=== PATIENT | female | born 1980 | race African-American/Black ===

== ENCOUNTER 2016-06-04 02:38 | Emergency (ER) | payer MEDICAID ==
[~2016-06-04] VITALS: Ht 170.2 cm; Wt 145.0 kg
[~2016-06-04 02:38] MED LIST: ATOR20TA PO; IBUP800T23 PO; ORPH100T PO; TRAM50 PO; Z.0.BCPILL PO
[2016-06-04 02:41] VITALS: BP 152/86; PULSE 94; RESP 16; O2SAT 100
[2016-06-04] MEDS ORDERED: ATOR20TA15 PO (02:53)
[2016-06-04] MEDS ORDERED: BIRTH CONTROL PILLS (02:53)
[2016-06-04] MEDS ORDERED: AMOX500T PO (03:37)
[2016-06-04] MEDS ORDERED: DICL50TA3 PO (03:37)
--- NOTE | 2016-06-04 03:41 | PD ---
HPI Chief Complaint: Oral / Dental Pain or Problem Time Seen by Provider: 03:37 Travel History International Travel<30 days: No Contact w/Intl Traveler<30days: No Traveled to known affect area: No History of Present Illness HPI 35-year-old black female presents emergency Department with complaints of right sided dental pain. She states that she been having pain now for approximately one week but has gotten worse in the last 2 days. She states the pain is moderate but can be severe with cold weather. She denies any fever or chills. No sore throat, cough, congestion. No nausea vomiting. She states cold makes it worse and nothing seems to make it better. 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) Tetanus Vaccination: < 5 Years ?: Not LMP: 3 WKS AGO : 4 Para: 2 Miscarriage: 2 Dilation and Curettage (D&C): Yes Tubal Ligation: Yes Past Surgical History Narrative Surgical Cholecystectomy, Section: Yes Cholecystectomy: Yes Gynecologic Surgery: Yes ([facility]) Social History Alcohol Use: Yes (SOCIALLY) Tobacco Use: No Substance Use: No Allergies-Medications (Allergen,Severity, Reaction): Coded Allergies: No Known Allergies (Verified , 06/04/16) Reported Meds & Prescriptions Reported Meds & Active Scripts Active Reported [ Control Pills] Atorvastatin (Atorvastatin Calcium) 20 Mg Tab 20 Mg PO HS Review of Systems Except as stated in HPI: all other systems reviewed are Neg Physical Exam Narrative GENERAL: Well-developed, well-nourished in no acute distress. Nontoxic appearing. HEAD: Normocephalic, atraumatic. EYES: Pupils equal round and reactive. Extraocular motions intact. No scleral icterus. No injection or drainage. ENT: TMs clear without erythema. The external auditory canals clear. Nose: clear . Posterior pharynx is pink and moist. No tonsillar edema or exudate. Uvula midline. Airway patent. Patient has periodontal disease. She has multiple dental caries. She points to her right upper maxilla lower mandible as a source of her pain. She has a large dental caries in her right lower mandible. No facial swelling. NECK: Trachea midline.Supple, nontender, moves head freely. No central bony tenderness or spasm. CARDIOVASCULAR: Regular rate and rhythm without murmurs, gallops, or rubs. RESPIRATORY: Clear to auscultation. Breath sounds equal bilaterally. No wheezes , rales, or rhonchi. GASTROINTESTINAL: Abdomen soft, non-tender, nondistended. No hepato-splenomegaly , or palpable masses. No guarding. EXTREMITIES: No clubbing, cyanosis, or edema. No joint tenderness, effusion, or edema noted. BACK: Nontender without deformity or crepitance. No flank tenderness. Data Data Last Documented VS Vital Signs Date Time Temp Pulse Resp B/P Pulse Ox O2 Delivery O2 Flow Rate FiO2 06/04/16 02:41 94 16 152/86 100 Room Air Orders Acetamin-Hydrocod 325-5 Mg ([place] 5-325 (06/04/16 03:45) Amoxicillin (Trimox) (06/04/16 03:45) MDM Medical Decision Making Medical Screen Exam Complete: Yes Emergency Medical Condition: Yes Medical Record Reviewed: Yes Differential Diagnosis MDM: Moderate Differential diagnoses: Dental abscess, dental caries, osteitis, cellulitis Narrative Course Patient's given amoxicillin 500 mg and Lortab 5 a grams by mouth. This is dental caries, dentalgia Diagnosis Primary Impression: Dental caries Additional Impression: Dentalgia Patient Instructions: General Instructions Additional Instructions: Rest. [place] gargles. [place] oil on cotton balls. Amoxicillin and diclofenac follow-up with a dentist as soon as possible. And return to the ER if any problems. Med/Other Pt SpecificInfo: Prescription(s) given Scripts Diclofenac Sodium DR 50 Mg Tabdr50 Mg PO TID #21 TAB Prov:Sepideh Pastrana MD 06/04/16 Amoxicillin 500 Mg Tab1,000 Mg PO BID #40 TAB Prov:Sepideh Pastrana MD 06/04/16 Disposition: 01 DISCHARGE HOME Condition: Stable Rayshawn Weiner Jun 04, 2016 03:41
[2016-06-04] MEDS ORDERED: AMOXICILLIN (TRIHYDRATE) 500 MG CAP PO ONE (03:45)
[2016-06-04] MEDS ORDERED: ACETAMINOPHEN/HYDROcodone 325 MG/5 MG TAB PO ONE (03:45)
== END 2016-06-04 04:16 | disposition home or self-care (01) ==
LOC: NEPB 02:38
DX: K02.9 Dental caries, unspecified (principal)
CPT/HCPCS: 99282